=== PATIENT | female | born 1980 | race Caucasian/White ===

== ENCOUNTER 2017-02-17 16:21 | Emergency (ER) | payer MEDICAID, OTHER ==
[~2017-02-17] VITALS: Ht 162.6 cm; Wt 62.2 kg
[~2017-02-17 16:21] MED LIST: HYDR1TAB12 PO
[2017-02-17 16:26] VITALS: BP 154/112
[2017-02-17] MEDS ORDERED: SODIUM CHLORIDE 0.9% 1,000 ML IV ONE (16:38)
[2017-02-17] MEDS ORDERED: SODIUM CHLORIDE FLUSH 10ML SYR IVF ONE (17:00)
[2017-02-17 17:55] LABS: ASPARTATE AMINO TRANSFERASE 19 U/L (15-37); BLOOD UREA NITROGEN 7 mg/dL (7-18)
[2017-02-17 18:04] LABS: IS PT STATUS REG ER OR PRE ER? YES
== END 2017-02-17 18:40 | disposition home or self-care (01) ==
LOC: ED 18:34
DX: R00.2 Palpitations (principal)
CPT/HCPCS: 36415; 71010; 80053; 84484; 84703; 85025; 93005; 96360; 96361; 99285; J7030

== ENCOUNTER 2018-05-25 07:28 | Emergency (ER) | payer MEDICAID ==
[~2018-05-25] VITALS: Ht 162.6 cm; Wt 58.8 kg
[2018-05-25 07:32] VITALS: BP 147/94
[2018-05-25 08:20] LABS: CULTURE INDICATED? YES; MICROSCOPIC INDICATED
[2018-05-25] MEDS ORDERED: CEFTRIAXONE 1,000 MG IM ONE (09:00)
[2018-05-25 09:18] LABS: CLUE CELLS PRESENT (NONE SEEN); WET PREP WBCS FEW (FEW)
[2018-05-25] MEDS ORDERED: CEFTRIAXONE 1,000 MG ONE (09:43)
== END 2018-05-25 09:49 | disposition home or self-care (01) ==
LOC: ED 09:43
DX: N76.0 Acute vaginitis (principal); B96.89 Other specified bacterial agents as the cause of diseases classified elsewhere; N30.01 Acute cystitis with hematuria; I10 Essential (primary) hypertension
CPT/HCPCS: 81001; 87077; 87086; 87186; 87210; 87491; 87591; 87808; 96372; 99284; J0696

== ENCOUNTER 2018-08-31 16:20 | Emergency (ER) | payer MEDICAID ==
[~2018-08-31] VITALS: Ht 160 cm; Wt 61.0 kg
[2018-08-31 16:47] LABS: BASOPHILS # (AUTO) 0.05 x10^3/uL (0-0.1); BASOPHILS % (AUTO) 1 % (0-1); EOSINOPHILS # (AUTO) 0.26 x10^3/uL (0-0.4); EOSINOPHILS % (AUTO) 3 % (1-7); LYMPHOCYTES # (AUTO) 2.03 x10^3/uL (1-3.4); LYMPHOCYTES % (AUTO) 23 % (22-44); MD NO; MEAN CORPUSCULAR HEMOGLOBIN 31.8 pg (27.0-34.8); MEAN CORPUSCULAR HGB CONC 33.2 g/dL (32.4-35.8); MEAN CORPUSCULAR VOLUME 95.9 fL (80-100); MEAN PLATELET VOLUME 7.9 fL (7.4-10.4); MONOCYTES # (AUTO) 0.78 x10^3/uL (0.2-0.8); MONOCYTES % (AUTO) 9 % (2-9); NEUTROPHILS # (AUTO) 5.83 x10^3/uL (1.8-6.8); NEUTROPHILS % (AUTO) 65 % (42-75); PLATELET COUNT 270 x10^3/uL (130-400); RED BLOOD COUNT 5.02 x10^6/uL (3.82-5.3); RED CELL DISTRIBUTION WIDTH 13.3 % (9.6-15.2)
[2018-08-31 16:57] LABS: ALANINE AMINOTRANSFERASE 30 U/L (12-78); ALBUMIN 3.9 g/dL (3.4-5.0); ANION GAP 6 mmol/L (5-15); CALCIUM 8.8 mg/dL (8.5-10.1); CHLORIDE 106 mmol/L (98-107); CREATININE 0.91 mg/dL (0.55-1.02)
[2018-08-31 16:59] LABS: ALKALINE PHOSPHATASE 112 U/L (45-117); BILIRUBIN,TOTAL 0.3 mg/dL (0.2-1.0); TOTAL PROTEIN 7.7 g/dL (6.4-8.2)
[2018-08-31 17:21] LABS: MICROSCOPIC NOT IND
[2018-08-31] MEDS ORDERED: ONDANSETRON ODT 4 MG ONE (17:21)
[2018-08-31 17:27] LABS: CULTURE INDICATED? NO
[2018-08-31] MEDS ORDERED: ONDANSETRON ODT 4 MG PO ONE (17:30)
[2018-08-31 18:16] VITALS: BP 132/74
[2018-08-31 19:08] LABS: CLOSTRIDIUM DIFFICILE ANTIGEN POSITIVE; CLOSTRIDIUM DIFFICILE TOXIN NEGATIVE (Negative)
== END 2018-08-31 18:29 | disposition home or self-care (01) ==
LOC: ED 17:25
DX: K52.9 Noninfective gastroenteritis and colitis, unspecified (principal); I10 Essential (primary) hypertension; F17.210 Nicotine dependence, cigarettes, uncomplicated
CPT/HCPCS: 36415; 80053; 81003; 83690; 85025; 87324; 89055; 93005; 99285; Q0162

== ENCOUNTER 2018-12-07 13:10 | Emergency (ER) | payer MEDICAID ==
[~2018-12-07] VITALS: Ht 162.6 cm; Wt 61.1 kg
[2018-12-07 13:50] LABS: BASOPHILS # (AUTO) 0.08 x10^3/uL (0-0.1); BASOPHILS % (AUTO) 1 % (0-1); EOSINOPHILS # (AUTO) 0.05 x10^3/uL (0-0.4); EOSINOPHILS % (AUTO) 1 % (1-7); LYMPHOCYTES # (AUTO) 2.32 x10^3/uL (1-3.4); LYMPHOCYTES % (AUTO) 26 % (22-44); MD NO; MEAN CORPUSCULAR HEMOGLOBIN 31.3 pg (27.0-34.8); MEAN CORPUSCULAR VOLUME 94.7 fL (80-100); MEAN PLATELET VOLUME 8.1 fL (7.4-10.4); MONOCYTES # (AUTO) 0.56 x10^3/uL (0.2-0.8); MONOCYTES % (AUTO) 6 % (2-9); NEUTROPHILS # (AUTO) 5.95 x10^3/uL (1.8-6.8); NEUTROPHILS % (AUTO) 66 % (42-75); PLATELET COUNT 265 x10^3/uL (130-400); RED BLOOD COUNT 5.28 x10^6/uL (3.82-5.3); RED CELL DISTRIBUTION WIDTH 13.3 % (9.6-15.2)
[2018-12-07 13:56] LABS: ANION GAP 4 mmol/L (5-15); CALCIUM 9.1 mg/dL (8.5-10.1); CHLORIDE 107 mmol/L (98-107); CREATININE 0.84 mg/dL (0.55-1.02)
--- NOTE | 2018-12-07 14:58 | NUR ---
PT TO ROOM FROM LOBBY. ALL RESULTS BACK, AWAITING RECHECK.
--- NOTE | 2018-12-07 15:26 | NUR ---
ADD ON LABS.
[2018-12-07 15:52] LABS: FREE T4 (FREE THYROXINE) 1.22 ng/dL (0.76-1.46); THYROID STIMULATING HORMONE 0.78 mIU/L (0.358-3.740)
[2018-12-07 16:13] VITALS: BP 148/85
== END 2018-12-07 16:18 | disposition home or self-care (01) ==
LOC: ED 15:05
DX: R42 Dizziness and giddiness (principal); R00.2 Palpitations; F41.9 Anxiety disorder, unspecified; Z76.0 Encounter for issue of repeat prescription; I10 Essential (primary) hypertension; I48.91 Unspecified atrial fibrillation; Z90.710 Acquired absence of both cervix and uterus
CPT/HCPCS: 36415; 71046; 80048; 84439; 84443; 85025; 93005; 99284

== ENCOUNTER 2019-03-07 08:44 | Inpatient (IN) | payer OTHER ==
[2019-03-06 10:07] LABS: BASOPHILS # (AUTO) 0.03 x10^3/uL (0-0.1); BASOPHILS % (AUTO) 0 % (0-1); EOSINOPHILS # (AUTO) 0.07 x10^3/uL (0-0.4); EOSINOPHILS % (AUTO) 1 % (1-7); LYMPHOCYTES # (AUTO) 1.58 x10^3/uL (1-3.4); LYMPHOCYTES % (AUTO) 21 % (22-44); MD NO; MEAN CORPUSCULAR HEMOGLOBIN 31.7 pg (27.0-34.8); MEAN CORPUSCULAR HGB CONC 33.7 g/dL (32.4-35.8); MEAN CORPUSCULAR VOLUME 94.2 fL (80-100); MEAN PLATELET VOLUME 8.5 fL (7.4-10.4); MONOCYTES # (AUTO) 0.53 x10^3/uL (0.2-0.8); MONOCYTES % (AUTO) 7 % (2-9); NEUTROPHILS # (AUTO) 5.38 x10^3/uL (1.8-6.8); NEUTROPHILS % (AUTO) 71 % (42-75); PLATELET COUNT 207 x10^3/uL (130-400); RED BLOOD COUNT 4.78 x10^6/uL (3.82-5.3); RED CELL DISTRIBUTION WIDTH 13.8 % (9.6-15.2)
[2019-03-06 10:09] LABS: MICROSCOPIC NOT IND
[2019-03-06 10:13] LABS: INTERNATIONAL NORMALIZED RATIO 0.94 (0.93-1.1); PROTHROMBIN TIME 9.9 Seconds (9.6-11.5)
[2019-03-06 10:17] LABS: ALBUMIN 3.9 g/dL (3.4-5.0); ANION GAP 3 mmol/L (5-15); CALCIUM 8.6 mg/dL (8.5-10.1); CHLORIDE 108 mmol/L (98-107)
[2019-03-06 10:22] LABS: ALANINE AMINOTRANSFERASE 24 U/L (12-78); ALKALINE PHOSPHATASE 95 U/L (45-117); BILIRUBIN,TOTAL 0.5 mg/dL (0.2-1.0); CREATININE 0.59 mg/dL (0.55-1.02); TOTAL PROTEIN 7.2 g/dL (6.4-8.2)
[2019-03-06 10:24] LABS: CULTURE INDICATED? NO
[~2019-03-07] VITALS: Ht 162.6 cm; Wt 64.3 kg
[~2019-03-07 08:44] MED LIST changes: -HYDR1TAB12 PO; +HYDR1TAB13 PO; +LIDOCAINE 1%-EPI 1:100K, 20ML ONE; +None at this Time; +THROMBIN 5,000 UNIT VIAL TP ONE; +TOBRAMYCIN SULFATE 1.2 GM IMP ONE; +TRIAMCINOLONE ACETONIDE 40 MG/ML, 1ML ONE; +VANCOMYCIN 1,000 MG ONE
[2019-03-07] MEDS ORDERED: LACTATED RINGERS 1,000 ML IV SCH (09:25)
[2019-03-07 09:28] VITALS: BP 134/83
[2019-03-07] MEDS ORDERED: PROPOFOL 10 MG/ML, 20ML ONE (09:44)
[2019-03-07] MEDS ORDERED: GLYCOPYRROLATE 0.2MG/1ML, 5ML ONE (09:44)
[2019-03-07] MEDS ORDERED: ROCURONIUM 10MG/ML,5ML ONE (09:44)
[2019-03-07] MEDS ORDERED: DEXAMETHASONE 4 MG/ML, 1ML ONE (09:44)
[2019-03-07] MEDS ORDERED: FENTANYL PF 250 MCG/5ML ONE (09:45)
[2019-03-07] MEDS ORDERED: MIDAZOLAM 1 MG/ML, 2ML ONE (09:45)
[2019-03-07] MEDS ORDERED: CEFAZOLIN 1,000 MG ONE (09:45)
[2019-03-07] MEDS ORDERED: THROMBIN 5,000 UNIT VIAL TP ONE (10:45)
[2019-03-07] MEDS ORDERED: LIDOCAINE 1%, 20ML ONE (10:56)
[2019-03-07] MEDS ORDERED: KETAMINE 10 MG/ML, 20ML ONE (10:56)
[2019-03-07] MEDS ORDERED: GABAPENTIN 300 MG CAPSULE PO ONE (11:00)
[2019-03-07] MEDS ORDERED: SCOPOLAMINE PATCH, 1.5MG PATCH.TD72 TD ONE (11:00)
[2019-03-07] MEDS ORDERED: FAMOTIDINE 20 MG TABLET PO ONE (11:00)
[2019-03-07] MEDS ORDERED: OxyconTIN ER 20 MG TAB.ER PO ONE (11:00)
[2019-03-07] MEDS ORDERED: hydrALAzine 20 MG/ML, 1ML ONE (11:07)
[2019-03-07] MEDS ORDERED: EPHEDRINE 50 MG/ML, 1ML ONE (12:36)
[2019-03-07] MEDS ORDERED: METOPROLOL 1 MG/ML, 5ML ONE (12:36)
[2019-03-07] MEDS ORDERED: HYDROmorphone 2 MG/ML, 1ML ONE (13:07)
[2019-03-07] MEDS ORDERED: FENTANYL PF 100 MCG/2ML ONE (13:07)
[2019-03-07] MEDS ORDERED: OXYcodone 5 MG/5 ML ORAL.SOL UDC ONE (13:08)
[2019-03-07] MEDS: FENTANYL PF 100 MCG/2ML IV PRN ×2 (13:17→13:30)
[2019-03-07] MEDS: HYDROmorphone 2 MG/ML, 1ML IVPush PRN ×3 (13:21→13:55)
[2019-03-07] MEDS ORDERED: DEXAMETHASONE 4 MG/ML, 1ML IV PRN (13:30)
[2019-03-07] MEDS ORDERED: hydrALAzine 20 MG/ML, 1ML IV PRN (13:30)
[2019-03-07] MEDS ORDERED: EPHEDRINE 50 MG/ML, 1ML IM PRN (13:30)
[2019-03-07] MEDS ORDERED: EPHEDRINE 50 MG/ML, 1ML IVPush PRN (13:30)
[2019-03-07] MEDS ORDERED: MORPHINE SULFATE 4 MG/ML, 1ML IVPush PRN (13:30)
[2019-03-07] MEDS ORDERED: DIPHENHYDRAMINE 50 MG/ML, 1ML IVPush PRN (13:30)
[2019-03-07] MEDS ORDERED: MEPERIDINE/PF 25MG/0.5ML IVPush PRN (13:30)
[2019-03-07] MEDS ORDERED: LABETALOL 5MG/ML, 20ML IV PRN (13:30)
[2019-03-07] MEDS ORDERED: KETOROLAC 30 MG/1 ML IV PRN (13:30)
[2019-03-07] MEDS ORDERED: OXYcodone 5 MG/5 ML ORAL.SOL UDC PO PRN (13:30)
[2019-03-07] MEDS ORDERED: MIDAZOLAM 1 MG/ML, 2ML IV PRN (13:30)
[2019-03-07] MEDS ORDERED: ALBUTEROL/IPRATROPIUM 2.5MG/0.5MG, 3 ML NPPB PRN (13:30)
[2019-03-07] MEDS ORDERED: ONDANSETRON ODT 8 MG PO PRN (13:30)
[2019-03-07 14:00] VITALS: BP 118/75
[2019-03-07] MEDS ORDERED: HYDROcodone/APAP 10/325 MG TABLET PO PRN (15:00)
[2019-03-07] MEDS ORDERED: MAGNESIUM HYDROXIDE 8%, 30ML UDC PO PRN (15:00)
[2019-03-07] MEDS: D5%-0.9% NACL+KCL 20MEQ 1,000 ML IV SCH (15:00)
[2019-03-07] MEDS ORDERED: ONDANSETRON 2MG/ML, 2ML IV PRN (15:00)
[2019-03-07] MEDS ORDERED: morphine SULFATE 10 MG/ML, 1ML IV PRN (15:00)
[2019-03-07] MEDS ORDERED: BISACODYL 10 MG SUPP PR PRN (15:00)
[2019-03-07] MEDS ORDERED: PROMETHAZINE 25 MG/ML, 1ML IM PRN (15:00)
[2019-03-07] MEDS: CEFAZOLIN PMX 1GM/50ML 50 ML IVPB SCH (18:00)
[2019-03-07 19:54] VITALS: BP 128/76
[2019-03-07] MEDS: METHOCARBAMOL 750 MG TABLET PO PRN (20:24)
[2019-03-07] MEDS: SENNA/DOCUSATE TABLET PO SCH (20:24)
[2019-03-07] MEDS: HYDROcodone/APAP 5/325 TABLET PO PRN (20:24)
[2019-03-08 00:06] VITALS: BP 98/55
[2019-03-08] MEDS: D5%-0.9% NACL+KCL 20MEQ 1,000 ML IV SCH ×2 (01:00→11:00)
[2019-03-08] MEDS: CEFAZOLIN PMX 1GM/50ML 50 ML IVPB SCH (02:07)
[2019-03-08 04:28] VITALS: BP 106/59
[2019-03-08] MEDS: HYDROcodone/APAP 5/325 TABLET PO PRN ×2 (06:24→10:49)
[2019-03-08 07:33] VITALS: BP 109/60
[2019-03-08] MEDS: SENNA/DOCUSATE TABLET PO SCH (10:49)
[2019-03-08] MEDS: METHOCARBAMOL 750 MG TABLET PO PRN (10:58)
[2019-03-08 11:17] VITALS: BP 116/74
[2019-03-08] MEDS ORDERED: OXYC-302 PO (12:09)
[2019-03-08] MEDS ORDERED: METH750T87 PO (12:10)
== END 2019-03-08 12:35 | disposition home or self-care (01) | DRG 472 ==
LOC: ORIP 09:03 → 4NOR 14:26 → DCLOUNGE 03-08 12:20
PROVIDERS: ADMIT Orthopaedic Surgery Orthopaedic Surgery of the Spine; ATTEND Orthopaedic Surgery Orthopaedic Surgery of the Spine
PROC: 0RB30ZZ Excision of Cervical Vertebral Disc, Open Approach (ICD-10-PCS; 2019-03-07)
PROC: 4A10X4G Monitoring of Central Nervous Electrical Activity, Intraoperative, External Approach (ICD-10-PCS; 2019-03-07)
PROC: 0RG10A0 Fusion of Cervical Vertebral Joint with Interbody Fusion Device, Anterior Approach, Anterior Column, Open Approach (ICD-10-PCS; principal; 2019-03-07 11:00)
DX: M48.02 Spinal stenosis, cervical region (principal); M47.12 Other spondylosis with myelopathy, cervical region; M47.22 Other spondylosis with radiculopathy, cervical region; I10 Essential (primary) hypertension; F17.200 Nicotine dependence, unspecified, uncomplicated; Z91.018 Allergy to other foods
CPT/HCPCS: 36415; 72040; J3260; J3490; 71046; 80053; 81003; 85025; 85610; 85730; 93005; 95938; 95941; C1713; G0378; J0690; J1100; J1170; J2250; J2405; J2704; J3010; J3301; J3370; C1762; J0360; J7120

== ENCOUNTER 2020-05-10 09:37 | Outpatient (CLI) | payer OTHER ==
[~2020-05-10 09:37] MED LIST changes: -LIDOCAINE 1%-EPI 1:100K, 20ML ONE; +METH750T87 PO; +OXYC-302 PO; -THROMBIN 5,000 UNIT VIAL TP ONE; -TOBRAMYCIN SULFATE 1.2 GM IMP ONE; -TRIAMCINOLONE ACETONIDE 40 MG/ML, 1ML ONE; -VANCOMYCIN 1,000 MG ONE
[2020-05-10] MEDS ORDERED: ACET-1600 PO (10:29)
[2020-05-10] MEDS ORDERED: PSEU120T10 PO (10:29)
[2020-05-10] MEDS ORDERED: METO25TA35 PO (10:29)
[2020-05-10 10:47] LABS: BASOPHILS # (AUTO) 0.02 x10^3/uL (0-0.1); BASOPHILS % (AUTO) 0 % (0-1); EOSINOPHILS # (AUTO) 0.19 x10^3/uL (0-0.4); EOSINOPHILS % (AUTO) 2 % (1-7); LYMPHOCYTES # (AUTO) 1.96 x10^3/uL (1-3.4); LYMPHOCYTES % (AUTO) 21 % (22-44); MD NO; MEAN CORPUSCULAR HEMOGLOBIN 31.6 pg (27.0-34.8); MEAN CORPUSCULAR HGB CONC 32.9 g/dL (32.4-35.8); MEAN PLATELET VOLUME 8.2 fL (7.4-10.4); MONOCYTES # (AUTO) 0.78 x10^3/uL (0.2-0.8); MONOCYTES % (AUTO) 8 % (2-9); NEUTROPHILS # (AUTO) 6.57 x10^3/uL (1.8-6.8); NEUTROPHILS % (AUTO) 69 % (42-75); PLATELET COUNT 265 x10^3/uL (130-400); RED BLOOD COUNT 4.91 x10^6/uL (3.82-5.3); RED CELL DISTRIBUTION WIDTH 13.3 % (9.6-15.2)
[2020-05-10 10:55] LABS: INTERNATIONAL NORMALIZED RATIO 0.94 (0.93-1.1)
[2020-05-10 10:57] LABS: ALANINE AMINOTRANSFERASE 22 U/L (12-78); ALBUMIN 3.9 g/dL (3.4-5.0); ANION GAP 6 mmol/L (5-15); CALCIUM 8.6 mg/dL (8.5-10.1); CHLORIDE 108 mmol/L (98-107); CREATININE 0.85 mg/dL (0.55-1.02)
[2020-05-10 10:59] LABS: ALKALINE PHOSPHATASE 119 U/L (45-117); BILIRUBIN,TOTAL 0.4 mg/dL (0.2-1.0); MICROSCOPIC AUTO; TOTAL PROTEIN 7.8 g/dL (6.4-8.2)
[2020-05-15] MEDS ORDERED: SULF1TAB23 PO (09:49)
[2020-05-16] MEDS ORDERED: HYDR-3237 PO (13:50)
== END 2020-05-10 23:59 | disposition home or self-care (01) ==
LOC: STAR 09:37
PROVIDERS: ATTEND Orthopaedic Surgery Orthopaedic Surgery of the Spine
DX: Z01.818 Encounter for other preprocedural examination (principal); Z11.59 Encounter for screening for other viral diseases; M96.0 Pseudarthrosis after fusion or arthrodesis; R00.0 Tachycardia, unspecified; I11.9 Hypertensive heart disease without heart failure
CPT/HCPCS: 36415; 71046; 80053; 81001; 85025; 85610; 85730; 87077; 87086; 87186; 87635; 93005